=== PATIENT | male | born 1970 | race Asian ===

== ENCOUNTER 2018-10-09 21:59 | Inpatient (IN) | payer BC ==
--- NOTE | 2018-10-09 22:10 | PDOC ---
History of Present Illness - General Chief Complaint: Wound Stated Complaint: Headache Time Seen by Provider: 10/09/18 22:09 History Source: Patient Exam Limitations: No Limitations - History of Present Illness Initial Comments: 48 y/o male presenting to [facility] ER via private auto complaining of right periorbital swelling for the past two days. Swelling started spontaneously yesterday and noticeably worsened in the interim. He experienced an episode of right eye pain and blurry vision lasting a few hours earlier today. Vision has returned to normal. Endorses subjective fever and chills earlier today. points out redness to the medial aspect of the right eye. Additionally complaining of multiple skin lesions that appeared across his scalp last week. Denies history of similar lesions or swelling. Denies trauma to the area. No recent international travel; returned from [place] today in car. PCP: Dr. Bob Cristobal Medical Hx: - Diabetes - HTN - HLD Surgical Hx: - Pt denies past surgical history. Past History - Past Medical History Allergies/Adverse Reactions: Allergies Allergy/AdvReac Type Severity Reaction Status Date / Time No Known Allergies Allergy Verified 10/09/18 22:03 COPD: No Diabetes: Yes - Suicide/Smoking/Psychosocial Hx Smoking History: Never smoked Review of Systems - Review of Systems Able to Perform ROS?: Yes Comments:: In addition to that documented in the HPI above, the additional ROS was obtained : Constitutional: Endorses fevers or chills Eyes: Denies vision changes ENMT: Denies sore throat CV: Denies chest pain Resp: Denies SOB GI: Denies vomiting or diarrhea *Physical Exam - Vital Signs Last Vital Signs Temp Pulse Resp BP Pulse Ox 97.7 F 106 H 18 157/84 98 10/09/18 22:01 10/09/18 22:01 10/09/18 22:01 10/09/18 22:01 10/09/18 22:01 - Physical Exam Comments: Constitutional: Well-developed, well-nourished male in no acute distress or obvious discomfort. Found sitting upright in hospital chair. Alert and oriented x4. Answered all questions appropriately and completely. Speech was non-labored , non-pressured. Head/Eyes: Fullness and swelling around the superior aspect of the right orbit. No overlying skin changes. Medial aspect of right sclera is injected. No tenderness to palpation of temporal bone, frontal sinus, or maxillary sinus. No obvious external signs of trauma. PERRL. EOMI. Vision 20/25 bilaterally. Small isolated furuncles, one on left posterior occipital, left parietal, and right frontal regions; all tender to palpation. Eye Fluorescein Exam: Small amount of dye uptake overlying injected area - possible small area of excoriation. EARS: External auditory canals and tympanic membranes clear, hearing grossly intact. NOSE: No nasal discharge. THROAT: Oral cavity and pharynx normal. No inflammation, swelling, exudate, or lesions. Teeth and gingiva in good general condition. Neck: Supple, trachea is midline. Cardiovascular: Regular rate and regular rhythm. No murmur, rubs, clicks, or gallops. Peripheral pulses: Radial pulses full. Respiratory: Breathing unlabored. Equal chest rise and fall. Clear to auscultation bilaterally. No stridor, no wheezing, no rhonchi. Neuro: Alert and oriented. Moving all four extremities spontaneously. Gait normal. Observed walking unassisted through the department without assistance. Skin: Aside from findings noted above, skin is warm, dry, and intact. Psych: Affect: appropriate. Mood: normal. Medical Decision Making - Medical Decision Making *Reviewed vital signs, nursing notes, and prior visit documentation (if available). 48 y/o male complaining of right periorbital swelling with episode of eye pain and visual disturbance. Occuring in setting of recent appearance of scalp furuncles. H/o diabetes, believed to be well controlled. Afebrile. Triage vitals remarkable for mild tachycardia, not tachycardic on physical exam. D/D includes periorbital cellulitis, giant cell arteritis, zoster, reardon puffy tumor. Will obtain CBC, BMP, ESR, CRP, and CT of face and head. Ordered Vancomycin and Zosyn for broad spectrum coverage. 10/10/18 00:02 Pt signed out to resident Dr. Monroe after she was verbally appraised of the pt's HPI and ED course. Will follow up on pending labs and CT imaging. Likely admit for IV antibiotics. *DC/Admit/Observation/Transfer Diagnosis at time of Disposition: Orbital swelling - Discharge Dispostion Condition at time of disposition: Stable - Referrals Referrals: ON STAFF,NOT [Primary Care Provider] - - Patient Instructions - Post Discharge Activity
[2018-10-09] MEDS ORDERED: TETRACAINE 0.5% OPHTH SOLN 2 ML BOTTLE ONE ×2 (22:34→23:48)
[2018-10-09] MEDS ORDERED: FLUORESCEIN NA 1 EA STRIP ONE ×2 (22:34→23:48)
--- NOTE | 2018-10-09 22:57 | PDOC ---
Attending Attestation - Resident Resident Name: Valentin More - ED Attending Attestation I have performed the following: I have examined & evaluated the patient, The case was reviewed & discussed with the resident, I agree w/resident's findings & plan, Exceptions are as noted - HPI HPI: 10/09/18 22:52 48 yo DM htn hld here with c/o right facial periorbital swelling. pt noticed 2 days of swelling around right eye. has had small bumps/ furuncles on scalp for one week. no f/c but today didn't feel well. had nausea, eye pain, swelling. chills. felt his eyes were blurry earlier. no trauma to eye. now vision is at baseline. mild headache, more scalp pain and tenderness. eye redness. no contacts. no glassess. - Physicial Exam PE: 10/09/18 22:54 awake alert eyes right eye with conj injection. supraorbital, / forhead fullness , swelling. EOMI, no pain with extraocular movement. noted forehead swelling. scalp with multiple small furuncles. tm clear biltaerally. flourescin exam, no uptake. no fb. visual acuity 20/25 bilaterally. lungs clear bilaterally heart rrr no mrg abd soft nt nd. ext wwp. no edema. skin ( furuncles as described above). - Medical Decision Making 10/09/18 22:56 48 yo M h/o DM HTN HLD, her with furuncles, folliculitis, concerns for facial cellulitis periorbital vs. orbital cellulitis. plan iv anntiobiocs. labs cultures. ct head and orbits r/o orbital cellulitis.
[2018-10-09] MEDS ORDERED: PIPERACILLIN/TAZOB 3.375 GM 3.375 GM in DEXTROSE 5%-WATER - 50 ML IVPB ONE (22:58)
[2018-10-09] MEDS ORDERED: VANCOMYCIN 1,000 MG in DEXTROSE 5%-WATER - 250 ML IVPB ONE (22:58)
[2018-10-09] MEDS ORDERED: FLUORESCEIN NA 1 EA STRIP OS ONE (23:00)
[2018-10-09] MEDS ORDERED: TETRACAINE 0.5% HCL 0.6ML DROPPER.BOTTLE OS ONE (23:01)
[2018-10-09] MEDS ORDERED: PIPERACILLIN/TAZOB 3.375 GM 3.375 GM/50 ML BAG IVPB ONE (23:48)
[2018-10-09] MEDS ORDERED: VANCOMYCIN 1 GRAM (PRE-DOCKED) 1,000 MG/250 ML BAG IVPB ONE (23:48)
--- NOTE | 2018-10-10 00:13 | PDOC ---
*Physical Exam - Vital Signs Last Vital Signs Temp Pulse Resp BP Pulse Ox 97.7 F 106 H 18 157/84 98 10/09/18 22:01 10/09/18 22:01 10/09/18 22:01 10/09/18 22:01 10/09/18 22:01 ED Treatment Course - LABORATORY CBC & Chemistry Diagram: 10/10/18 00:26 10/10/18 00:26 Medical Decision Making - Medical Decision Making 10/10/18 00:11 Patient signed out to me by Dr. More. 48 y/o male complaining of right periorbital swelling x2 days, getting worse. No vision problems today. Isolated furuncles. -Labs drawn, started on vanco/zosyn and CT pending CT head showed skin swelling in L occiptal and parietal regions and R frontal corresponding to furuncles. CT face showed slight periorbital swelling around R orbit. No signs of septal cellulitis. Will be admitted for IV abx for cellulitis. Pt admitted to hospitalist *DC/Admit/Observation/Transfer Diagnosis at time of Disposition: Orbital swelling Periorbital cellulitis Qualifiers: Laterality: right Qualified Code(s): L03.213 - Periorbital cellulitis - Discharge Dispostion Condition at time of disposition: Stable - Referrals - Patient Instructions - Post Discharge Activity
[2018-10-10 00:40] LABS: BASO % 0.8 % (0-2.0); EOS % 2.7 % (0-4.5); HEMATOCRIT 39.8 % (35.4-49); LYMPH % 14.9 % (8-40); MCH 28.1 pg (25.7-33.7); MCHC 32.7 g/dl (32.0-35.9); MEAN CELL VOLUME 85.8 fl (80-96); MEAN PLT VOLUME 9.3 fl (7.5-11.1); MONO % 9.7 % (3.8-10.2); NEUT % 71.9 % (42.8-82.8); PLATELET COUNT 231 K/MM3 (134-434); RBC 4.64 M/mm3 (4.00-5.60); RDW 12.9 % (11.9-15.9); WHITE BLOOD COUNT 11.8 K/mm3 (4.0-10.0)
[2018-10-10 01:03] LABS: ANION GAP 6 MMOL/L (8-16); BLOOD UREA NITROGEN 17 mg/dL (7-18); CALCIUM 8.4 mg/dL (8.5-10.1); CHLORIDE 102 mmol/L (98-107); CO2 27 mmol/L (21-32); CREATININE 0.9 mg/dL (0.55-1.3); GLUCOSE,RANDOM 180 mg/dL (74-106); POTASSIUM 4.3 mmol/L (3.5-5.1); SODIUM 135 mmol/L (136-145)
[2018-10-10] MEDS ORDERED: TETRACAINE 0.5% OPHTH SOLN 2 ML BOTTLE ONE (01:11)
[2018-10-10 01:43] LABS: ERYTHROCYTE SEDIMENTATION RATE 38 mm/hr (0-20)
--- NOTE | 2018-10-10 02:09 | HP ---
CHIEF COMPLAINT: eye pain/swelling PCP: HISTORY OF PRESENT ILLNESS: 48 y/o male with PMH of DM, HTN, HLD who presented to the ED with complaints of eye pain/swelling since in addition to multiple painful furuncles scattered around patients scalp. Patient states that he first noticed the appearance of the furuncles about a week ago and a half ago and he states they are very painful and are very tender to palpation, he denies any use of new creams, shampoos etc. was when he began to notice the swelling above his eyes and the eye pain/changes in vision. He states that his right eye was burning and was having some blurred vision along with redness of the eye, though denies any tearing of the eye. He denies however any real pain when moving the eye in multiple directions. He states that this is the first time this has ever happened to him. Patient has also been having subjective fevers and chills at home for the past week, however, he has not taken his temperature. ER course was notable for: (1)WBC 11.8 (2) facial bones CT- positive for swelling in the right periorbital region (3)vanc and zosyn given Recent Travel: no recent international travel; just came back from [place] today PAST MEDICAL HISTORY: see above PAST SURGICAL HISTORY: none Social History: Smoking:denies Alcohol:social alcohol user (occasional drinks on the weekend) Drugs: none Family History: positive for DM and HTN on both sides Allergies No Known Allergies Allergy (Verified 10/09/18 22:03) HOME MEDICATIONS: Home Medications Medication Instructions Recorded Lisinopril [Prinivil] 10 mg PO DAILY 10/10/18 Naproxen Sodium [Aleve] 220 mg PO PRN PRN 10/10/18 Simvastatin [Zocor -] 20 mg PO HS 10/10/18 Sitagliptin Phos/Metformin HCl 1 each PO BID 10/10/18 [Janumet 50-500 mg Tablet] REVIEW OF SYSTEMS CONSTITUTIONAL: Present fever, chills: Absent:, diaphoresis, generalized weakness, malaise, loss of appetite, weight change HEENT: Present:eye pain, visual changes Absent: rhinorrhea, nasal congestion, throat pain, throat swelling, difficulty swallowing, mouth swelling, ear pain, CARDIOVASCULAR: Absent: chest pain, syncope, palpitations, irregular heart rate, lightheadedness , peripheral edema RESPIRATORY: Absent: cough, shortness of breath, dyspnea with exertion, orthopnea, wheezing, stridor, hemoptysis GASTROINTESTINAL: Absent: abdominal pain, abdominal distension, nausea, vomiting, diarrhea, constipation, melena, hematochezia GENITOURINARY: Absent: dysuria, frequency, urgency, hesitancy, hematuria, flank pain, genital pain MUSCULOSKELETAL: Absent: myalgia, arthralgia, joint swelling, back pain, neck pain SKIN: Present: bothersome lesions on scalp Absent: rash, itching, pallor HEMATOLOGIC/IMMUNOLOGIC: Absent: easy bleeding, easy bruising, lymphadenopathy, frequent infections ENDOCRINE: Absent: unexplained weight gain, unexplained weight loss, heat intolerance, cold intolerance NEUROLOGIC: Absent: headache, focal weakness or paresthesias, dizziness, unsteady gait, seizure, mental status changes, bladder or bowel incontinence PSYCHIATRIC: Absent: anxiety, depression, suicidal or homicidal ideation, hallucinations. PHYSICAL EXAMINATION Vital Signs - 24 hr 10/09/18 22:01 Temperature 97.7 F Pulse Rate 106 H Respiratory 18 Rate Blood Pressure 157/84 O2 Sat by Pulse 98 Oximetry (%) GENERAL: Awake, alert, and fully oriented, in no acute distress. HEAD: multiple furuncles: left occiptal and parietal region and right frontal region of scalp- tenderness upon palpation. EYES: R periorbital swelling and tenderness upon palpation, with conjunctival injection of both eyes (R>L) .. NECK:no JVD, no lymphadenopathy LUNGS: CTA B/L; no rales, rhonchi or wheezing ABDOMEN: Soft, nontender, not distended, normoactive bowel sounds, no guarding, no rebound, no masses. No hepatomegaly or splenomegaly. MUSCULOSKELETAL: Normal range of motion at all joints. No bony deformities or tenderness. No CVA tenderness. EXTREMITIES: warm, well-perfused, no clubbing/cyanosis or no edema B/L PSYCHIATRIC: Cooperative. Good eye contact. Appropriate mood and affect. SKIN: Warm, dry, normal turgor, no rashes or lesions noted, normal capillary refill. Laboratory Results - last 24 hr 10/10/18 10/10/18 10/10/18 00:26 00:26 00:26 WBC 11.8 H RBC 4.64 Hgb 13.0 Hct 39.8 MCV 85.8 MCH 28.1 MCHC 32.7 RDW 12.9 Plt Count 231 MPV 9.3 Absolute Neuts (auto) 8.4 H Neutrophils % 71.9 Lymphocytes % 14.9 Monocytes % 9.7 Eosinophils % 2.7 Basophils % 0.8 Nucleated RBC % 0 ESR 38 H Sodium 135 L Potassium 4.3 Chloride 102 Carbon Dioxide 27 Anion Gap 6 L BUN 17 Creatinine 0.9 Creat Clearance w eGFR > 60 Random Glucose 180 H Calcium 8.4 L C-Reactive Protein 2.7 H ASSESSMENT/PLAN: 48 y/o male with PMH of HTN, HLD, DM who presents with a two day history of right periorbital swelling, tenderness, in addition to multiple scalp lesions. #Periorbital Cellulitis patient is feeling better and having less pain on motion -c/w vanc and zosyn -blood cx pending -ID consulted # Scalp lesions possibly 2/2 patients uncontrolled DM -c/w vanc and zosyn -ID consulted -blood cx ordered #DM -holding oral meds -ISS ACHS -levemir 10units -BGMS ACHS -HbA1c ordered #HTN -lisinopril 20 mg DVT PPX: lovenox 40 F/E/N not on fluids replete electolytes diabetic diet Problem List - Problem (1) Orbital swelling Code(s): H05.229 - EDEMA OF UNSPECIFIED ORBIT Visit type - Emergency Visit Emergency Visit: Yes ED Registration Date: 10/10/18 Care time: The patient presented to the Emergency Department on the above date and was hospitalized for further evaluation of their emergent condition. - New Patient This patient is new to me today: Yes Date on this admission: 10/10/18 - Critical Care Critical Care patient: No
[2018-10-10] MEDS: ACETAMINOPHEN 325 MG TABLET (FP) PO PRN ×4 (03:09→23:04)
--- NOTE | 2018-10-10 04:53 | PN ---
Teaching Attending Note Name of Resident: Ivon Rhodes ATTENDING PHYSICIAN STATEMENT I saw and evaluated the patient. Chart, data, imaging reviewed. I reviewed the resident's note and discussed the case with the resident. I agree with the resident's findings and plan as documented. SUBJECTIVE: 48 yo man with uncontrolled DM who c/o right periorbital swelling for about 2 days and 3 tender bumps on his scalp for about the last week or so. Scalp lesions are erythematous with some dried purulent material. SOme blurry vision previously, now improved. Patient lives in [place], [place] and is in visiting here in [place]. Denied any swimming, animal contact, sick contacts, or recent travels aside from traveling to [place]. No fevers or chills. Last A1C was 10. OBJECTIVE: Last Vital Signs Temp Pulse Resp BP Pulse Ox 97.9 F 85 18 131/72 96 10/10/18 04:20 10/10/18 04:20 10/10/18 04:20 10/10/18 04:20 10/10/18 04:20 General -nad, aaox3 heent - 3 erythematous, pustular lesions about 1-2 cm in diameter on scalp, right periorbital swelling noted neck -supple cv- s1+S2+rrr chest clear abdomen -soft, nt, bs+ ext- no pedal edema Abnormal Lab Results 10/10/18 10/10/18 10/10/18 00:26 00:26 00:26 WBC 11.8 H Absolute Neuts (auto) 8.4 H ESR 38 H Sodium 135 L Anion Gap 6 L Random Glucose 180 H Calcium 8.4 L C-Reactive Protein 2.[address] and head CT reviewed ASSESSMENT AND PLAN: 48yo man with pustular soft tissue infections on scalp, possibly secondary to staph and right sided periorbital cellulitis. Probably precipitated by uncontrolled DM. -observation -IV vancomycin -IV ZOsyn -ID consult -blood cultures x2 -lactate -Nasal swab for MRSA PCR #Uncontrolled DM -tight insulin sliding scale -glargine insulin -a1c heparin sc for dvt ppx
[2018-10-10 04:54] VITALS: BMI 23.6
[2018-10-10] MEDS: INSULIN SLIDING SCALE (NOVOLOG) 1 VIAL SQ SCH ×4 (06:21→22:03)
[2018-10-10] MEDS: HEPARIN NA (PORCINE) 5,000 UNITS/ML 1ML VIAL SQ SCH ×3 (06:22→22:03)
[2018-10-10 07:37] LABS: BASO % 0.5 % (0-2.0); EOS % 3.9 % (0-4.5); HEMATOCRIT 37.7 % (35.4-49); HEMOGLOBIN 12.1 GM/dL (11.7-16.9); LYMPH % 17.8 % (8-40); MCH 27.4 pg (25.7-33.7); MEAN CELL VOLUME 85.7 fl (80-96); MEAN PLT VOLUME 9.5 fl (7.5-11.1); MONO % 10.1 % (3.8-10.2); NEUT % 67.7 % (42.8-82.8); PLATELET COUNT 213 K/MM3 (134-434); RDW 13.3 % (11.9-15.9); WHITE BLOOD COUNT 11.3 K/mm3 (4.0-10.0)
[2018-10-10 07:58] LABS: ALBUMIN 3.3 g/dl (3.4-5.0); ALK PHOS 59 U/L (45-117); ANION GAP 10 MMOL/L (8-16); BILIRUBIN,TOTAL 0.5 mg/dL (0.2-1); BLOOD UREA NITROGEN 15 mg/dL (7-18); CHLORIDE 102 mmol/L (98-107); CO2 26 mmol/L (21-32); CREATININE 0.9 mg/dL (0.55-1.3); GLUCOSE,RANDOM 197 mg/dL (74-106); MAGNESIUM 2.1 mg/dL (1.8-2.4); PHOSPHOROUS 2.6 mg/dL (2.5-4.9); POTASSIUM 4.1 mmol/L (3.5-5.1); SGOT/AST 10 U/L (15-37); SGPT/ALT 21 U/L (13-61); SODIUM 137 mmol/L (136-145); TOT PROT 6.7 g/dl (6.4-8.2)
[2018-10-10] MEDS: LISINOPRIL 10 MG TABLET (FP) PO SCH (09:47)
--- NOTE | 2018-10-10 10:00 | CON.ID ---
Consult Consult Specialty:: infectious disease Referred by:: hospitalist Reason for Consultation:: facial cellulitis - History of Present Illness Chief Complaint: painful scalp lesions and left forehead pain and eye pain History of Present Illness: 48 yo diabetic man with 2 day history of fever and chills. He reports left frontal headache and forehead and left eye swelling he notes painful scalp lesions for the last week and a half- never had before- come and go- notes 5 now last haircult 3 weeks ago no swimming never happened before no history MRSA seen in ED head ct and facial bone ct done results pending given vancomycin and zosyn in ED no antibiotics at home feels a bit better no visual changes reports vision normal no eye pain now - History Source History Provided By: Patient Limitations to Obtaining History: No Limitations - Past Medical History Cardio/Vascular: Yes: HTN, Hyperlipdemia Endocrine: Yes: Diabetes Mellitus - Past Surgical History Past Surgical History: Yes: None - Alcohol/Substance Use Hx Alcohol Use: (social) - Smoking History Smoking history: Never smoked - Social History Usual Living Arrangement: With Spouse ADL: Independent Occupation: jeweler Place of : Other ([employer]) History of Recent Travel: Yes (lives in [place], came to visit family in [place]) Home Medications - Allergies Allergies/Adverse Reactions: Allergies Allergy/AdvReac Type Severity Reaction Status Date / Time No Known Allergies Allergy Verified 10/09/18 22:03 - Home Medications Home Medications: Ambulatory Orders Lisinopril [Prinivil] 10 mg PO DAILY 10/10/18 Naproxen Sodium [Aleve] 220 mg PO PRN PRN 10/10/18 Simvastatin [Zocor -] 20 mg PO HS 10/10/18 Sitagliptin Phos/Metformin HCl [Janumet 50-500 mg Tablet] 1 each PO BID Family Disease History - Family Disease History Other Family History: DM, HTN, HLD Review of Systems - Review of Systems Constitutional: reports: Chills, Fever Eyes: reports: Eye Pain (resolved) HENT: reports: No Symptoms Neck: reports: No Symptoms Cardiovascular: reports: No Symptoms Respiratory: reports: No Symptoms. denies: Cough Gastrointestinal: denies: Abdominal Pain Genitourinary: reports: No Symptoms Physical Exam Vital Signs: Vital Signs Temperature 97.9 F 10/10/18 04:20 Pulse Rate 85 10/10/18 04:20 Respiratory Rate 18 10/10/18 04:20 Blood Pressure 131/72 10/10/18 04:20 O2 Sat by Pulse Oximetry (%) 96 10/10/18 04:20 Constitutional: Yes: Well Nourished, No Distress Eyes: Yes: Other (some injection of the right eye) HENT: Yes: Atraumatic, Normocephalic, Other (multiple furuncles on his scalp, swelling right forehead, EOMsI). No: Thrush, Tonsillar Exudate Neck: Yes: Supple Cardiovascular: Yes: Regular Rate and Rhythm Respiratory: Yes: Regular, CTA Bilaterally Gastrointestinal: Yes: Normal Bowel Sounds, Soft ...Rectal Exam: Yes: WNL Breast(s): Yes: WNL Musculoskeletal: Yes: WNL Extremities: Yes: WNL Edema: No Labs: CBC, BMP 10/10/18 06:10 10/10/18 06:10 Imaging - Results Cat Scan: Pending Problem List - Problems (1) Facial cellulitis Code(s): L03.211 - CELLULITIS OF FACE (2) Furuncle of scalp Code(s): L02.821 - FURUNCLE OF HEAD [ANY PART, EXCEPT FACE] (3) Diabetes Code(s): E11.9 - TYPE 2 DIABETES MELLITUS WITHOUT COMPLICATIONS Assessment/Plan awaiting imaging studies suspect scalp infection - ?staph with furncles as souce of cellulitis of the forehead continue vancomycin and zosyn f/u imaging f/u cultures mrsa screen of nares d/w hospitalist
--- NOTE | 2018-10-10 10:24 | PN ---
Progress Note (short form) - Note Progress Note: c/o pain and pruritis of the scalp. started several weeks ago first at the top of his head and then several other lesions have started. has not seen a doctor or been evaluated for this. Developed R facial swelling which prompted him to the Er. has subjective fevers and chills. no previous episodes. lives in [place] and here to visit family but no travel other places. no recent new creams, soaps or medications. last haircut was 3 weeks ago. no recent changes to medications. states his A1c last month was 10.5 and adjusted diet but no other changes. states his sugars have consistently been <150 for the past. denies CP, SOB, N/V/C/D, other rashes or lesions Current Medications Generic Name Dose Route Start Last Admin Trade Name Freq PRN Reason Stop Dose Admin Acetaminophen 650 mg 10/10/18 03:02 10/10/18 03:09 Tylenol - PO 650 mg Q6H PRN Administration PAIN Atorvastatin Calcium 10 mg 10/10/18 22:00 Lipitor - PO HS JENNI Heparin Sodium (Porcine) 5,000 unit 10/10/18 06:00 10/10/18 06:22 Heparin - SQ 5,000 unit TID JENNI Administration Vancomycin HCl 1,000 mg in 250 mls @ 166.667 mls/hr 10/10/18 10:15 Vancomycin (Pre-Docked) IVPB Q12H JENNI Protocol Piperacillin Sod/Tazobactam 100 mls @ 200 mls/hr 10/10/18 10:15 Sod 4.5 gm/ Dextrose IVPB Q8H-IV JENNI Protocol Insulin Aspart 1 vial 10/10/18 07:00 10/10/18 06:21 Novolog Vial Sliding Scale - SQ 4 units ACHS JENNI Administration Protocol Lisinopril 10 mg 10/10/18 10:00 10/10/18 09:47 Prinivil PO 10 mg DAILY JENNI Administration Last Vital Signs Temp Pulse Resp BP Pulse Ox 97.9 F 85 18 131/72 96 10/10/18 04:20 10/10/18 04:20 10/10/18 04:20 10/10/18 04:20 10/10/18 04:20 General NAD HEENT 4 centimeter lesions on the scalp which are swollen and excoriated with open blister with serous drainage all dispersed on the scalp. R forehead swelling. R eye slightly injected. EOMI, no photophobia, PERRL. sensation on the face intact. motor strength intact CV S1 S2 RRR no murmur/rub/gallop Lungs CTA B/L no wheezing/rales/rhonch Abdomen soft NT/ND Extremities no pedal edema CBCD WBC 11.3 K/mm3 (4.0-10.0) H 10/10/18 06:10 RBC 4.40 M/mm3 (4.00-5.60) 10/10/18 06:10 Hgb 12.1 GM/dL (11.7-16.9) 10/10/18 06:10 Hct 37.7 % (35.4-49) 10/10/18 06:10 MCV 85.7 fl (80-96) 10/10/18 06:10 MCHC 32.0 g/dl (32.0-35.9) 10/10/18 06:10 RDW 13.3 % (11.9-15.9) 10/10/18 06:10 Plt Count 213 K/MM3 (134-434) 10/10/18 06:10 MPV 9.5 fl (7.5-11.1) 10/10/18 06:10 CMP Sodium 137 mmol/L (136-145) 10/10/18 06:10 Potassium 4.1 mmol/L (3.5-5.1) 10/10/18 06:10 Chloride 102 mmol/L (98-107) 10/10/18 06:10 Carbon Dioxide 26 mmol/L (21-32) 10/10/18 06:10 Anion Gap 10 MMOL/L (8-16) 10/10/18 06:10 BUN 15 mg/dL (7-18) 10/10/18 06:10 Creatinine 0.9 mg/dL (0.55-1.3) 10/10/18 06:10 Creat Clearance w eGFR > 60 (>60) 10/10/18 06:10 Random Glucose 197 mg/dL (74-106) H 10/10/18 06:10 Calcium 8.0 mg/dL (8.5-10.1) L 10/10/18 06:10 Total Bilirubin 0.5 mg/dL (0.2-1) 10/10/18 06:10 AST 10 U/L (15-37) L 10/10/18 06:10 ALT 21 U/L (13-61) 10/10/18 06:10 Alkaline Phosphatase 59 U/L (45-117) 10/10/18 06:10 Total Protein 6.7 g/dl (6.4-8.2) 10/10/18 06:10 Albumin 3.3 g/dl (3.4-5.0) L 10/10/18 06:10 A/P 48yo M with PMH DM dyslipidemia and HTN presented to the ER wtih scalp lesions and forehead swelling 1. Mutliple scalp lesions- suspicious for furncles of the scalp, concern as may be tracking into the face with assoc forehead swelling. awaiting official CT results but low concern of orbital cellulitis due to lack of eye involvement. Started on Vanco/zosyn. BCx obtained however abx were already given. case d/w ID. pain control 2. DM- states he recently adjusted diet. A1c here pending. cont with ISS and BGM. 3. HTN- controlled. cont home medications 4. Dyslipidemia- statin 5. DVT ppx- hep sq Visit type - Emergency Visit Emergency Visit: Yes ED Registration Date: 10/10/18 Care time: The patient presented to the Emergency Department on the above date and was hospitalized for further evaluation of their emergent condition. - New Patient This patient is new to me today: Yes Date on this admission: 10/10/18 - Critical Care Critical Care patient: No - Discharge Referral Referred to [facility] No
[2018-10-10] MEDS ORDERED: DEXTROSE 5%-WATER 100 ML IVPB ONE ×3 (10:40→16:22)
[2018-10-10] MEDS ORDERED: PIPERACILLIN/TAZOBACTAM 4.5 GM VIAL IVPB ONE ×3 (10:40→16:22)
[2018-10-10] MEDS: PIPERACILLIN/TAZOB 4.5 GM 4.5 GM in DEXTROSE 5%-WATER 100 ML IVPB SCH ×2 (10:49→17:11)
[2018-10-10] MEDS: VANCOMYCIN 1 GRAM (PRE-DOCKED) 1,000 MG/250 ML BAG IVPB SCH ×2 (10:57→23:06)
[2018-10-10] MEDS ORDERED: INSULIN (NOVOLOG) ASPART 100 UNITS/ML 10ML VIAL ONE (16:14)
[2018-10-10] MEDS ORDERED: INSULIN (LEVEMIR) 100 UNITS/ML UNITS SQ SCH (22:00)
[2018-10-10] MEDS: ATORVASTATIN CA 10 MG TABLET (FP) PO SCH (22:03)
[2018-10-11] MEDS ORDERED: PIPERACILLIN/TAZOBACTAM 4.5 GM VIAL IVPB ONE ×3 (01:32→17:18)
[2018-10-11] MEDS ORDERED: DEXTROSE 5%-WATER 100 ML IVPB ONE ×3 (01:32→17:18)
[2018-10-11] MEDS: PIPERACILLIN/TAZOB 4.5 GM 4.5 GM in DEXTROSE 5%-WATER 100 ML IVPB SCH ×3 (02:34→17:27)
[2018-10-11] MEDS: INSULIN SLIDING SCALE (NOVOLOG) 1 VIAL SQ SCH ×4 (06:26→21:17)
[2018-10-11] MEDS: HEPARIN NA (PORCINE) 5,000 UNITS/ML 1ML VIAL SQ SCH ×3 (06:26→21:14)
--- NOTE | 2018-10-11 07:59 | PN ---
Physical Exam: SUBJECTIVE: Patient seen and examined at bedside. No overnight events. Complaining of headache. lesions show little improvement. Denies CP,HERNANDEZ, SOB, palpitations, abdominal pain , nausea or vomiting. OBJECTIVE: Vital Signs Period Temp Pulse Resp BP Sys/Wong Pulse Ox Last 24 Hr 98.0 F-99.6 F 79-84 -18 140-146/74-91 GENERAL: AAOx3, Mild distress. HEAD: multiple furuncles located throughout the scalp. areas are open with active serous drainage. areas are tender;swelling of bridge of nose. EYES: PERRL,EOMI, sclera anicteric, conjunctiva clear. No ptosis. ENT: moist mucous membranes. LUNGS: CTAB, no wheezes, no crackles, no accessory muscle use. HEART: RRR, S1, S2 without murmur, rub or gallop. ABDOMEN: Soft, nontender, nondistended, normoactive bowel sounds, no guarding, no rebound, no hepatosplenomegaly, no masses. EXTREMITIES: 2+ pulses, warm, well-perfused, no edema. NEUROLOGICAL: Cranial nerves II through XII grossly intact. Normal speech, gait not observed. PSYCH: Normal mood, normal affect. SKIN: Warm, dry, normal turgor, no rashes or lesions noted Laboratory Results - last 24 hr 10/10/18 10/10/18 10/10/18 06:10 07:23 11:16 POC Glucometer 175 Hemoglobin A1c % 8.8 H Lactic Acid 1.2 10/10/18 10/10/18 10/11/18 16:12 22:02 06:16 POC Glucometer 197 247 223 Hemoglobin A1c % Lactic Acid Active Medications Generic Name Dose Route Start Last Admin Trade Name Freq PRN Reason Stop Dose Admin Acetaminophen 650 mg 10/10/18 03:02 10/10/18 23:04 Tylenol - PO 650 mg Q6H PRN Administration PAIN Atorvastatin Calcium 10 mg 10/10/18 22:00 10/10/18 22:03 Lipitor - PO 10 mg HS JENNI Administration Heparin Sodium (Porcine) 5,000 unit 10/10/18 06:00 10/11/18 06:26 Heparin - SQ 5,000 unit TID JENNI Administration Vancomycin HCl 1,000 mg in 250 mls @ 166.667 mls/hr 10/10/18 10:15 10/10/18 23:06 Vancomycin (Pre-Docked) IVPB 166.667 mls/hr Q12H JENNI Administration Protocol Piperacillin Sod/Tazobactam 100 mls @ 200 mls/hr 10/10/18 10:15 10/11/18 02: 34 Sod 4.5 gm/ Dextrose IVPB 200 mls/hr Q8H-IV JENNI Administration Protocol Insulin Aspart 1 vial 10/10/18 07:00 10/11/18 06:26 Novolog Vial Sliding Scale - SQ 4 units ACHS JENNI Administration Protocol Lisinopril 10 mg 10/10/18 10:00 10/10/18 09:47 Prinivil PO 10 mg DAILY JENNI Administration ASSESSMENT/PLAN: 48yo M with PMH DM dyslipidemia and HTN presented to the ER wtih scalp lesions and forehead swelling Problem List - Problems (1) Furuncle of scalp Assessment/Plan: CT of head and facial bones negative for infection tracking into the face * high concern for Staph infection. * forehead swelling improved * plastics consulted to evaluate to see if need to be I&D. * vanco/zosyn day 2. ID on board * add motrin for pain control. * BCx no growth to date. (2) HTN (hypertension) Assessment/Plan: * Lisinopril (Prinivil) 10 mg PO DAILY (3) HLD (hyperlipidemia) Assessment/Plan: cotinue statin. (4) Diabetes Assessment/Plan: oral hyperglycemic meds held * ADA diet * BGM ACHS * ISS ACHS (5) DVT prophylaxis Assessment/Plan: heparin SQ Visit type - Emergency Visit Emergency Visit: Yes ED Registration Date: 10/10/18 Care time: The patient presented to the Emergency Department on the above date and was hospitalized for further evaluation of their emergent condition. - New Patient This patient is new to me today: Yes Date on this admission: 10/11/18 - Critical Care Critical Care patient: No - Discharge Referral Referred to [facility] Med P.C.: No
[2018-10-11 08:02] LABS: BASO % 0.5 % (0-2.0); EOS % 4.8 % (0-4.5); HEMATOCRIT 38.6 % (35.4-49); HEMOGLOBIN 12.3 GM/dL (11.7-16.9); LYMPH % 16.4 % (8-40); MCH 27.3 pg (25.7-33.7); MCHC 31.8 g/dl (32.0-35.9); MEAN CELL VOLUME 85.9 fl (80-96); MONO % 8.9 % (3.8-10.2); NEUT % 69.4 % (42.8-82.8); PLATELET COUNT 223 K/MM3 (134-434); RBC 4.49 M/mm3 (4.00-5.60); RDW 12.8 % (11.9-15.9); WHITE BLOOD COUNT 10.5 K/mm3 (4.0-10.0)
--- NOTE | 2018-10-11 09:13 | PN ---
Teaching Attending Note Name of Resident: Uday Rodriguez ATTENDING PHYSICIAN STATEMENT I saw and evaluated the patient. I reviewed the resident's note and discussed the case with the resident. I agree with the resident's findings and plan as documented. SUBJECTIVE: no improvement in head lesions. forehead swelling mildly improved. denies CP, SOB, fever, chills, N/V/C/D OBJECTIVE: Last Vital Signs Temp Pulse Resp BP Pulse Ox 98.5 F 84 18 140/91 96 10/11/18 06:00 10/11/18 06:00 10/11/18 06:00 10/11/18 06:00 10/10/18 04:20 General NAD HEENT R forehead swelling is decreased however remains above bridge of nose. area is not tender. multiple furuncles located throughout the scalp. areas are open with active serous drainage. areas are tender ASSESSMENT AND PLAN: 48yo M with PMH DM dyslipidemia and HTN presented to the ER wtih scalp lesions and forehead swelling 1. Mutliple scalp lesions- suspicious for furncles of the scalp, high concern for Staph infection. forehead swelling improved. will ask plastics to evaluate to see if need to be I&D. CT of head and facial bones negative for infection tracking into the face. on vanco/zosyn day 2. add motrin for pain control. ID on board. BCx NGTD 2. DM- a1c 8.8 (improved from last month of 10.5). cont iss and BGM. can d/c home on home regimen. 3. HTN- controlled. cont home medications 4. Dyslipidemia- statin 5. DVT ppx- hep sq
[2018-10-11] MEDS: LISINOPRIL 10 MG TABLET (FP) PO SCH (09:35)
[2018-10-11] MEDS: VANCOMYCIN 1 GRAM (PRE-DOCKED) 1,000 MG/250 ML BAG IVPB SCH ×2 (09:36→21:14)
[2018-10-11] MEDS: ACETAMINOPHEN 325 MG TABLET (FP) PO PRN (10:45)
[2018-10-11] MEDS ORDERED: IBUPROFEN 600 MG TABLET (FP) PO ONE (11:39)
--- NOTE | 2018-10-11 12:17 | PN ---
Progress Note (short form) - Note Progress Note: feels better reports scalp lesions are still quite painful no eye pain no visual complaints Vital Signs Period Temp Pulse Resp BP Sys/Wong Pulse Ox Last 24 Hr 98.0 F-99.6 F 79-90 18-18 136-146/74-91 98 HEENT- +right mid face swelling, less right forehead swelling, left neck swelling scalp lesions unchanged no thrush no pharyngitis cor-rrr lungs clear abd soft,nt ext no edema CBC, BMP 10/11/18 07:30 10/10/18 06:10 Microbiology 10/10/18 06:30 Blood - Arterial Blood Culture - Preliminary NO GROWTH OBTAINED AFTER 24 HOURS, INCUBATION TO CONTINUE FOR 4 DAYS. 10/10/18 06:10 Blood - Arterial Blood Culture - Preliminary NO GROWTH OBTAINED AFTER 24 HOURS, INCUBATION TO CONTINUE FOR 4 DAYS. Laboratory Tests 10/10/18 10/10/18 00:26 00:26 ESR 38 H C-Reactive Protein 2.7 H a/p facial cellulitis scalp lesions ?staph infection unfortunately blood cultures sent after antibiotics started f/u MRSA screen continue vancomycin and zosyn reports clinical improvement plastic surgery to see for scalp lesions- ?abscesses vancomycin trough in am d/w hospitalist Problem List - Problems (1) Facial cellulitis Code(s): L03.211 - CELLULITIS OF FACE (2) Furuncle of scalp Code(s): L02.821 - FURUNCLE OF HEAD [ANY PART, EXCEPT FACE] (3) Diabetes Code(s): E11.9 - TYPE 2 DIABETES MELLITUS WITHOUT COMPLICATIONS
[2018-10-11] MEDS: ATORVASTATIN CA 10 MG TABLET (FP) PO SCH (21:14)
[2018-10-11] MEDS ORDERED: INSULIN (NOVOLOG) ASPART 100 UNITS/ML 10ML VIAL ONE (21:16)
[2018-10-12] MEDS ORDERED: PIPERACILLIN/TAZOBACTAM 4.5 GM VIAL IVPB ONE ×4 (00:47→23:56)
[2018-10-12] MEDS: ACETAMINOPHEN 325 MG TABLET (FP) PO PRN (00:53)
[2018-10-12] MEDS: PIPERACILLIN/TAZOB 4.5 GM 4.5 GM in DEXTROSE 5%-WATER 100 ML IVPB SCH ×3 (01:12→17:09)
[2018-10-12] MEDS: HEPARIN NA (PORCINE) 5,000 UNITS/ML 1ML VIAL SQ SCH ×3 (05:35→21:13)
[2018-10-12] MEDS: INSULIN SLIDING SCALE (NOVOLOG) 1 VIAL SQ SCH ×4 (06:31→21:45)
[2018-10-12 07:53] LABS: BASO % 0.7 % (0-2.0); EOS % 7.7 % (0-4.5); HEMATOCRIT 37.5 % (35.4-49); HEMOGLOBIN 11.9 GM/dL (11.7-16.9); LYMPH % 27.3 % (8-40); MCH 27.4 pg (25.7-33.7); MCHC 31.6 g/dl (32.0-35.9); MEAN CELL VOLUME 86.5 fl (80-96); MONO % 10.2 % (3.8-10.2); NEUT % 54.1 % (42.8-82.8); PLATELET COUNT 249 K/MM3 (134-434); RBC 4.34 M/mm3 (4.00-5.60); RDW 12.7 % (11.9-15.9); WHITE BLOOD COUNT 8.2 K/mm3 (4.0-10.0)
[2018-10-12] MEDS ORDERED: IBUPROFEN 600 MG TABLET (FP) PO PRN (08:12)
[2018-10-12 08:42] LABS: ALK PHOS 56 U/L (45-117); ANION GAP 8 MMOL/L (8-16); BILIRUBIN,TOTAL 0.3 mg/dL (0.2-1); BLOOD UREA NITROGEN 16 mg/dL (7-18); CALCIUM 8.5 mg/dL (8.5-10.1); CHLORIDE 102 mmol/L (98-107); CO2 25 mmol/L (21-32); CREATININE 0.9 mg/dL (0.55-1.3); GLUCOSE,RANDOM 225 mg/dL (74-106); POTASSIUM 4.8 mmol/L (3.5-5.1); SGOT/AST 13 U/L (15-37); SGPT/ALT 20 U/L (13-61); SODIUM 135 mmol/L (136-145); TOT PROT 6.6 g/dl (6.4-8.2)
[2018-10-12] MEDS ORDERED: DEXTROSE 5%-WATER 100 ML IVPB ONE ×3 (09:20→23:57)
[2018-10-12] MEDS: LISINOPRIL 10 MG TABLET (FP) PO SCH (09:29)
[2018-10-12] MEDS: VANCOMYCIN 1 GRAM (PRE-DOCKED) 1,000 MG/250 ML BAG IVPB SCH (10:31)
--- NOTE | 2018-10-12 10:43 | PN ---
Progress Note (short form) - Note Progress Note: pain has resolved Vital Signs Period Temp Pulse Resp BP Sys/Wong Pulse Ox Last 24 Hr 98 F-98.9 F 71-85 18-20 140-160/78-95 97-97 heent-forehead swelling has resolved neck swelling has resolved scalp lesions persistent but less tender cor-rrr lungs clear abd soft,nt ext no edema CBC, BMP 10/12/18 06:30 10/12/18 06:30 Microbiology 10/11/18 10:45 Nares - Mrsa Screen - Right MRSA Screen - Final Mr S Aureus 10/11/18 10:45 Nares - Mrsa Screen - Left MRSA Screen - Final Mr S Aureus 10/10/18 06:30 Blood - Arterial Blood Culture - Preliminary NO GROWTH OBTAINED AFTER 48 HOURS, INCUBATION TO CONTINUE FOR 3 DAYS. 10/10/18 06:10 Blood - Arterial Blood Culture - Preliminary NO GROWTH OBTAINED AFTER 48 HOURS, INCUBATION TO CONTINUE FOR 3 DAYS. Laboratory Tests 10/10/18 10/10/18 00:26 00:26 ESR 38 H C-Reactive Protein 2.7 H a/p facial cellulitis-resolved scalp lesions-?furuncles ?staph infection unfortunately blood cultures sent after antibiotics started MRSA screen positive contact isolation to be seen by plastic surgery today if okay for discharge can switch to po clindamycin 300 QID for 7 days Problem List - Problems (1) Facial cellulitis Code(s): L03.211 - CELLULITIS OF FACE (2) Furuncle of scalp Code(s): L02.821 - FURUNCLE OF HEAD [ANY PART, EXCEPT FACE] (3) Diabetes Code(s): E11.9 - TYPE 2 DIABETES MELLITUS WITHOUT COMPLICATIONS Qualifiers: Diabetes mellitus type: type 2 Diabetes mellitus complication status: with unspecified complications
--- NOTE | 2018-10-12 12:30 | CONSULT ---
Consult Consult Specialty:: Plastic Surgery Reason for Consultation:: scalp lesions - History of Present Illness Chief Complaint: scalp lesions History of Present Illness: 48m diabetic with spontaneous scalp lesions x 3, prior draining - History Source History Provided By: Patient Limitations to Obtaining History: No Limitations - Past Medical History Cardio/Vascular: Yes: HTN, Hyperlipdemia Endocrine: Yes: Diabetes Mellitus - Past Surgical History Past Surgical History: Yes: None - Alcohol/Substance Use Hx Alcohol Use: (social) - Smoking History Smoking history: Never smoked - Social History Usual Living Arrangement: With Spouse ADL: Independent Occupation: jeweler History of Recent Travel: Yes (lives in [place], came to visit family in [place]) Home Medications - Allergies Allergies/Adverse Reactions: Allergies Allergy/AdvReac Type Severity Reaction Status Date / Time No Known Allergies Allergy Verified 10/09/18 22:03 - Home Medications Home Medications: Ambulatory Orders Lisinopril [Prinivil] 10 mg PO DAILY 10/10/18 Naproxen Sodium [Aleve] 220 mg PO PRN PRN 10/10/18 Simvastatin [Zocor -] 20 mg PO HS 10/10/18 Sitagliptin Phos/Metformin HCl [Janumet 50-500 mg Tablet] 1 each PO BID Family Disease History - Family Disease History Other Family History: DM, HTN, HLD Physical Exam Vital Signs: Vital Signs Temperature 98.1 F 10/12/18 09:28 Pulse Rate 85 10/12/18 09:28 Respiratory Rate 20 10/12/18 09:28 Blood Pressure 152/81 10/12/18 09:28 O2 Sat by Pulse Oximetry (%) 97 10/12/18 02:00 Labs: CBC, BMP 10/12/18 06:30 10/12/18 06:30 Assessment/Plan 48m diabetic with resolving cellulitis and scalp open boils, resolving with IV Vancomyin, still with some exudate from small anterior lesion, +MRSA from nares - No indication for I&D - Recommend warm soaks with soap and water BID - Antibx as per ID - Would not recommend I&D at this time especially in the face of diabetes - No need for plastic surgery follow up
--- NOTE | 2018-10-12 14:16 | PN ---
Physical Exam: SUBJECTIVE: Patient seen and examined OBJECTIVE: Vital Signs Period Temp Pulse Resp BP Sys/Wong Pulse Ox Last 24 Hr 98 F-98.9 F 71-85 18-20 140-160/78-95 97-97 GENERAL: The patient is awake, alert, and fully oriented, in no acute distress. HEAD: Normal with no signs of trauma. EYES: PERRL, extraocular movements intact, sclera anicteric, conjunctiva clear. No ptosis. ENT: Ears normal, nares patent, oropharynx clear without exudates, moist mucous membranes. NECK: Trachea midline, full range of motion, supple. LUNGS: Breath sounds equal, clear to auscultation bilaterally, no wheezes, no crackles, no accessory muscle use. HEART: Regular rate and rhythm, S1, S2 without murmur, rub or gallop. ABDOMEN: Soft, nontender, nondistended, normoactive bowel sounds, no guarding, no rebound, no hepatosplenomegaly, no masses. EXTREMITIES: 2+ pulses, warm, well-perfused, no edema. NEUROLOGICAL: Cranial nerves II through XII grossly intact. Normal speech, gait not observed. PSYCH: Normal mood, normal affect. SKIN: Warm, dry, normal turgor, no rashes or lesions noted Laboratory Results - last 24 hr 10/11/18 10/11/18 10/12/18 16:33 21:13 05:27 WBC RBC Hgb Hct MCV MCH MCHC RDW Plt Count MPV Absolute Neuts (auto) Neutrophils % Lymphocytes % Monocytes % Eosinophils % Basophils % Nucleated RBC % Sodium Potassium Chloride Carbon Dioxide Anion Gap BUN Creatinine Creat Clearance w eGFR POC Glucometer 212 346 214 Random Glucose Calcium Total Bilirubin AST ALT Alkaline Phosphatase Total Protein Albumin Vancomycin Pre-Dose 10/12/18 10/12/18 10/12/18 06:30 06:30 09:26 WBC 8.2 RBC 4.34 Hgb 11.9 Hct 37.5 MCV 86.5 MCH 27.4 MCHC 31.6 L RDW 12.7 Plt Count 249 MPV 9.0 Absolute Neuts (auto) 4.4 Neutrophils % 54.1 D Lymphocytes % 27.3 D Monocytes % 10.2 Eosinophils % 7.7 H Basophils % 0.7 Nucleated RBC % 0 Sodium 135 L Potassium 4.8 Chloride 102 Carbon Dioxide 25 Anion Gap 8 BUN 16 Creatinine 0.9 Creat Clearance w eGFR > 60 POC Glucometer Random Glucose 225 H Calcium 8.5 Total Bilirubin 0.3 AST 13 L ALT 20 Alkaline Phosphatase 56 Total Protein 6.6 Albumin 3.0 L Vancomycin Pre-Dose 8.9 L 10/12/18 12:06 WBC RBC Hgb Hct MCV MCH MCHC RDW Plt Count MPV Absolute Neuts (auto) Neutrophils % Lymphocytes % Monocytes % Eosinophils % Basophils % Nucleated RBC % Sodium Potassium Chloride Carbon Dioxide Anion Gap BUN Creatinine Creat Clearance w eGFR POC Glucometer 252 Random Glucose Calcium Total Bilirubin AST ALT Alkaline Phosphatase Total Protein Albumin Vancomycin Pre-Dose Active Medications Generic Name Dose Route Start Last Admin Trade Name Freq PRN Reason Stop Dose Admin Acetaminophen 650 mg 10/10/18 03:02 10/12/18 00:53 Tylenol - PO 650 mg Q6H PRN Administration PAIN Atorvastatin Calcium 10 mg 10/10/18 22:00 10/11/18 21:14 Lipitor - PO 10 mg HS JENNI Administration Heparin Sodium (Porcine) 5,000 unit 10/10/18 06:00 10/12/18 13:36 Heparin - SQ 5,000 unit TID JENNI Administration Piperacillin Sod/Tazobactam 100 mls @ 200 mls/hr 10/10/18 10:15 10/12/18 09: 29 Sod 4.5 gm/ Dextrose IVPB 200 mls/hr Q8H-IV JENNI Administration Protocol Vancomycin HCl 1,250 mg/ 250 mls @ 166.667 mls/hr 10/12/18 22:00 Dextrose IVPB Q12H JENNI Protocol Ibuprofen 600 mg 10/12/18 08:12 10/12/18 12:27 Motrin - PO 600 mg Q6H PRN Administration PAIN LEVEL 1-5 Insulin Aspart 1 vial 10/10/18 07:00 10/12/18 12:17 Novolog Vial Sliding Scale - SQ 6 units ACHS JENNI Administration Protocol Lisinopril 10 mg 10/10/18 10:00 10/12/18 09:29 Prinivil PO 10 mg DAILY JENNI Administration ASSESSMENT/PLAN: 48 y/o male with PMH of HTN, HLD, DM who presents with a two day history of right periorbital swelling, tenderness, in addition to multiple scalp lesions. #Periorbital Cellulitis patient is feeling better and having less pain on motion -c/w vanc and zosyn -blood cx negative # Scalp lesions possibly 2/2 patients uncontrolled DM -c/w vanc and zosyn -plastics saw patient: no need for I and D; monitor and apply warm soaks -MRSA FROM NARES POSITIVE #DM -holding oral meds -ISS ACHS -levemir 10units -BGMS ACHS -HbA1c 8.8; down from 10 #HTN -lisinopril 20 mg DVT PPX: lovenox 40 F/E/N not on fluids replete electolytes diabetic diet Problem List - Problems (1) Orbital swelling Code(s): H05.229 - EDEMA OF UNSPECIFIED ORBIT Visit type - Emergency Visit Emergency Visit: Yes ED Registration Date: 10/10/18 Care time: The patient presented to the Emergency Department on the above date and was hospitalized for further evaluation of their emergent condition. - New Patient This patient is new to me today: No - Critical Care Critical Care patient: No
--- NOTE | 2018-10-12 18:14 | PN ---
Teaching Attending Note Name of Resident: Ivon Rhodes ATTENDING PHYSICIAN STATEMENT I saw and evaluated the patient. I reviewed the resident's note and discussed the case with the resident. I agree with the resident's findings and plan as documented. SUBJECTIVE:states his swelling is now limited to supr-orbital. pain has improved at areas along the scalp and less drainage. denies CP, SOB, fever, chills, N/V/C/D OBJECTIVE: Last Vital Signs Temp Pulse Resp BP Pulse Ox 98.3 F 87 20 138/79 97 10/12/18 15:23 10/12/18 15:23 10/12/18 15:23 10/12/18 15:23 10/12/18 02:00 General NAD HEENT R supraorbital swelling. EOMI, PERRL in R eye. area is not tender multiple furuncles located throughout the scalp. swollen and tender. no active drainage. ASSESSMENT AND PLAN: 48yo M with PMH DM dyslipidemia and HTN presented to the ER wtih scalp lesions and forehead swelling 1. Mutliple scalp lesions- suspicious for furncles of the scalp, +MRSA in the nares. BCx negative however obtained after abx initiated. wound care per plastics (warm soaks with soap BID). no intervention at this time. on vanco/ zosyn day 3. check vanco trough today. will need to d/w ID about abx duration. might be difficulty during oil heaterman iv abx as patient [place] not [place]. will need to d/w ID. pain controlled. 2. DM- a1c 8.8 (improved from last month of 10.5). cont iss and BGM. can d/c home on home regimen. 3. HTN- controlled. cont home medications 4. Dyslipidemia- statin 5. DVT ppx- hep sq 6. spoke with present at bedside. all questions answered. verbalized understanding and agreement.
[2018-10-12] MEDS: VANCOMYCIN 1,250 MG in DEXTROSE 5%-WATER - 250 ML IVPB SCH (21:13)
[2018-10-12] MEDS: ATORVASTATIN CA 10 MG TABLET (FP) PO SCH (21:13)
[2018-10-12] MEDS ORDERED: diphenhydrAMINE HCL 25 MG CAPSULE (FP) PO ONE (22:15)
[2018-10-13] MEDS: PIPERACILLIN/TAZOB 4.5 GM 4.5 GM in DEXTROSE 5%-WATER 100 ML IVPB SCH ×2 (02:43→09:57)
[2018-10-13] MEDS: HEPARIN NA (PORCINE) 5,000 UNITS/ML 1ML VIAL SQ SCH ×2 (06:14→14:35)
[2018-10-13] MEDS: INSULIN SLIDING SCALE (NOVOLOG) 1 VIAL SQ SCH ×2 (06:14→11:15)
[2018-10-13 08:12] LABS: BASO % 0.6 % (0-2.0); EOS % 7.8 % (0-4.5); HEMATOCRIT 36.9 % (35.4-49); HEMOGLOBIN 11.8 GM/dL (11.7-16.9); LYMPH % 23.3 % (8-40); MCH 27.5 pg (25.7-33.7); MEAN CELL VOLUME 85.9 fl (80-96); MEAN PLT VOLUME 8.7 fl (7.5-11.1); MONO % 8.6 % (3.8-10.2); NEUT % 59.7 % (42.8-82.8); PLATELET COUNT 276 K/MM3 (134-434); RBC 4.29 M/mm3 (4.00-5.60); RDW 12.6 % (11.9-15.9); WHITE BLOOD COUNT 7.8 K/mm3 (4.0-10.0)
[2018-10-13 08:20] LABS: ANION GAP 10 MMOL/L (8-16); BLOOD UREA NITROGEN 14 mg/dL (7-18); CALCIUM 8.5 mg/dL (8.5-10.1); CHLORIDE 103 mmol/L (98-107); CO2 26 mmol/L (21-32); CREATININE 0.9 mg/dL (0.55-1.3); GLUCOSE,RANDOM 137 mg/dL (74-106); PHOSPHOROUS 3.4 mg/dL (2.5-4.9); POTASSIUM 4.3 mmol/L (3.5-5.1); SODIUM 138 mmol/L (136-145)
[2018-10-13] MEDS ORDERED: PIPERACILLIN/TAZOBACTAM 4.5 GM VIAL IVPB ONE (09:41)
[2018-10-13] MEDS ORDERED: DEXTROSE 5%-WATER 100 ML IVPB ONE (09:41)
[2018-10-13] MEDS: LISINOPRIL 10 MG TABLET (FP) PO SCH (09:58)
[2018-10-13] MEDS: VANCOMYCIN 1,250 MG in DEXTROSE 5%-WATER - 250 ML IVPB SCH (11:10)
--- NOTE | 2018-10-13 13:58 | PN ---
Teaching Attending Note Name of Resident: Ivon Rhodes ATTENDING PHYSICIAN STATEMENT I saw and evaluated the patient. I reviewed the resident's note and discussed the case with the resident. I agree with the resident's findings and plan as documented with exceptions below. SUBJECTIVE: Patient seen and examined. No face or eye swelling, no fevers, chills, Scalp lesions improving, no new pain or discharge noted. Overall feels well. OBJECTIVE: Vital Signs Period Temp Pulse Resp BP Sys/Wong Pulse Ox Last 24 Hr 97.7 F-98.3 F 82-87 12-20 138-178/79-92 98-98 Intake & Output 10/10/18 10/11/18 10/12/18 10/13/18 23:59 23:59 23:59 23:59 Intake Total 100 990 600 800 Balance 100 990 600 800 Weight 137 lb 6.4 oz General: sitting in bed in no acute distress HEENT: scalp furuncles with surrounding induration/swelling, non tender, minimal discharge, no facial or jennifer-orbital swelling Home Medications Medication Instructions Recorded Lisinopril [Prinivil] 10 mg PO DAILY 10/10/18 Naproxen Sodium [Aleve] 220 mg PO PRN PRN 10/10/18 Simvastatin [Zocor -] 20 mg PO HS 10/10/18 Sitagliptin Phos/Metformin HCl 1 each PO BID 10/10/18 [Janumet 50-500 mg Tablet] Clindamycin [Cleocin -] 300 mg PO Q6H 7 Days #28 capsule 10/13/18 Active Medications Acetaminophen (Tylenol -) 650 mg PO Q6H PRN PRN Reason: PAIN Last Admin: 10/12/18 00:53 Dose: 650 mg Atorvastatin Calcium (Lipitor -) 10 mg PO HS JENNI Last Admin: 10/12/18 21:13 Dose: 10 mg Heparin Sodium (Porcine) (Heparin -) 5,000 unit SQ TID JENNI Last Admin: 10/13/18 06:14 Dose: 5,000 unit Piperacillin Sod/Tazobactam (Sod 4.5 gm/ Dextrose) 100 mls @ 200 mls/hr IVPB Q8H-IV JENNI; Protocol Last Admin: 10/13/18 09:57 Dose: 200 mls/hr Vancomycin HCl 1,250 mg/ (Dextrose) 250 mls @ 166.667 mls/hr IVPB Q12H JENNI; Protocol Last Admin: 10/13/18 11:10 Dose: 166.667 mls/hr Ibuprofen (Motrin -) 600 mg PO Q6H PRN PRN Reason: PAIN LEVEL 1-5 Last Admin: 10/12/18 12:27 Dose: 600 mg Insulin Aspart (Novolog Vial Sliding Scale -) 1 vial SQ ACHS JENNI; Protocol Last Admin: 10/13/18 11:15 Dose: 6 units Lisinopril (Prinivil) 10 mg PO DAILY JENNI Last Admin: 10/13/18 09:58 Dose: 10 mg Laboratory Results - last 24 hr 10/12/18 10/12/18 10/13/18 16:28 21:25 06:09 WBC RBC Hgb Hct MCV MCH MCHC RDW Plt Count MPV Absolute Neuts (auto) Neutrophils % Lymphocytes % Monocytes % Eosinophils % Basophils % Nucleated RBC % Sodium Potassium Chloride Carbon Dioxide Anion Gap BUN Creatinine Creat Clearance w eGFR POC Glucometer 279 208 121 Random Glucose Calcium Phosphorus Magnesium 10/13/18 10/13/18 10/13/18 07:10 07:10 11:14 WBC 7.8 RBC 4.29 Hgb 11.8 Hct 36.9 MCV 85.9 MCH 27.5 MCHC 32.0 RDW 12.6 Plt Count 276 MPV 8.7 Absolute Neuts (auto) 4.7 Neutrophils % 59.7 Lymphocytes % 23.3 Monocytes % 8.6 Eosinophils % 7.8 H Basophils % 0.6 Nucleated RBC % 0 Sodium 138 Potassium 4.3 Chloride 103 Carbon Dioxide 26 Anion Gap 10 BUN 14 Creatinine 0.9 Creat Clearance w eGFR > 60 POC Glucometer 295 Random Glucose 137 H Calcium 8.5 Phosphorus 3.4 Magnesium 2.0 Microbiology 10/10/18 06:30 Blood - Arterial Blood Culture - Preliminary NO GROWTH OBTAINED AFTER 72 HOURS, INCUBATION TO CONTINUE FOR 2 DAYS. 10/10/18 06:10 Blood - Arterial Blood Culture - Preliminary NO GROWTH OBTAINED AFTER 72 HOURS, INCUBATION TO CONTINUE FOR 2 DAYS. 10/11/18 10:45 Nares - Mrsa Screen - Right MRSA Screen - Final S Aureus 10/11/18 10:45 Nares - Mrsa Screen - Left MRSA Screen - Final S Aureus ASSESSMENT AND PLAN: 48yo M with PMH DM dyslipidemia and HTN presented to the ER wtih scalp lesions and forehead swelling -Multiple scalp MRSA furuncles with facial/periorbita cellulitis -NIDDM -HTN -HLD Plan: Improved, afebrile normal wbc. Wound cx with MRSA. ID/plastic surgery input noted. Clindamycin 300mg QID x 7 days. WOund care/cleaning instructions and need for strict glucose control discussed in detail with patient, patient relays understanding and agrees to comply. REsume home DM regimen. D/c home today with outpatient PCP follow up in 1 week. Advised patient to return if worsening redness/swelling/discharge or pain, and stressed need for warm water compresses, washing with soap and water and avoid picking at the lesions.
[2018-10-13 14:27] VITALS: BP 140/77; PULSE 82; TEMP 98.3
--- NOTE | 2018-10-13 14:56 | DS ---
Physical Exam: SUBJECTIVE: Patient seen and examined OBJECTIVE: Vital Signs Period Temp Pulse Resp BP Sys/Wong Pulse Ox Last 24 Hr 97.7 F-98.3 F 82-87 12-20 138-178/77-92 98-98 PHYSICAL EXAM GENERAL: The patient is awake, alert, and fully oriented, in no acute distress. HEAD: Normal with no signs of trauma. EYES: PERRL, extraocular movements intact, sclera anicteric, conjunctiva clear. ENT: Ears normal, nares patent, oropharynx clear without exudates, moist mucous membranes. NECK: Trachea midline, full range of motion, supple. LUNGS: Breath sounds equal, clear to auscultation bilaterally, no wheezes, no crackles, no accessory muscle use. HEART: Regular rate and rhythm, S1, S2 without murmur, rub or gallop. ABDOMEN: Soft, nontender, nondistended, normoactive bowel sounds, no guarding, no rebound, no hepatosplenomegaly, no masses. EXTREMITIES: 2+ pulses, warm, well-perfused, no edema. NEUROLOGICAL: Cranial nerves II through XII grossly intact. Normal speech, gait not observed. PSYCH: Normal mood, normal affect. SKIN: Warm, dry, normal turgor, no rashes or lesions noted. LABS Laboratory Results - last 24 hr 10/12/18 10/12/18 10/13/18 16:28 21:25 06:09 WBC RBC Hgb Hct MCV MCH MCHC RDW Plt Count MPV Absolute Neuts (auto) Neutrophils % Lymphocytes % Monocytes % Eosinophils % Basophils % Nucleated RBC % Sodium Potassium Chloride Carbon Dioxide Anion Gap BUN Creatinine Creat Clearance w eGFR POC Glucometer 279 208 121 Random Glucose Calcium Phosphorus Magnesium 10/13/18 10/13/18 10/13/18 07:10 07:10 11:14 WBC 7.8 RBC 4.29 Hgb 11.8 Hct 36.9 MCV 85.9 MCH 27.5 MCHC 32.0 RDW 12.6 Plt Count 276 MPV 8.7 Absolute Neuts (auto) 4.7 Neutrophils % 59.7 Lymphocytes % 23.3 Monocytes % 8.6 Eosinophils % 7.8 H Basophils % 0.6 Nucleated RBC % 0 Sodium 138 Potassium 4.3 Chloride 103 Carbon Dioxide 26 Anion Gap 10 BUN 14 Creatinine 0.9 Creat Clearance w eGFR > 60 POC Glucometer 295 Random Glucose 137 H Calcium 8.5 Phosphorus 3.4 Magnesium 2.0 imaging: Facial Bones CT No acute fracture identified Maxillary sinusitis possibly acute on the left Head CT: CT Head without contrast There is no evidence of any intracerebral hemorrhage, mass lesion or midline shift. There is no evidence of an acute subdural hematoma. No CT evidence of acute infarct. No fractures are identified. Small contusion or hematoma right frontal scalp region Impression: No acute intracranial bleed or fracture.No CT evidence of acute infarct. Microbiology 10/10/18 06:30 Blood - Arterial Blood Culture - Preliminary NO GROWTH OBTAINED AFTER 72 HOURS, INCUBATION TO CONTINUE FOR 2 DAYS. 10/10/18 06:10 Blood - Arterial Blood Culture - Preliminary NO GROWTH OBTAINED AFTER 72 HOURS, INCUBATION TO CONTINUE FOR 2 DAYS. 10/11/18 10:45 Nares - Mrsa Screen - Right MRSA Screen - Final S Aureus 10/11/18 10:45 Nares - Mrsa Screen - Left MRSA Screen - Final S Aureus HOSPITAL COURSE: Date of Admission:10/12/18 48 y/o male with PMH of DM, HTN presented to the ED with complaints of fever, right periorbital swelling, and multiple furuncles on his scalp. CBC on admission was 11.8- he was started on Vanc and Zosyn and imaging of both his facial bones and his head were done- results shown above. Blood cultures were done which were negative and an MRSA swab of the nares was done which was positive. ID saw the patient who agreed with vanc and zosyn and they also wanted to get plastics involved to see if the furuncles could be I and D'd. Plastics saw the patient and did not think an I and D was necessary- just to wash with warm water and soap. Patient stopped spiking fevers and his WBC decreased- he was dishcarged home on a 7 day course of clindamycin 300 mg 4 times a day and with strict follow up. These were likely due to his uncontrolled diabetes as patients last HbA1C WAS 8.8 and he had a recent increase in his oral hypoglycemic meds, he was instructed to check his BGMS frequently and to follow up with his PCP./ Date of Discharge: 10/13/18 Minutes to complete discharge: 39 Discharge Summary Reason For Visit: ORBITAL SWELLING Current Active Problems DVT prophylaxis (Acute) Diabetes (Acute) Facial cellulitis (Acute) Furuncle of scalp (Acute) HLD (hyperlipidemia) (Acute) HTN (hypertension) (Acute) Orbital swelling (Acute) Periorbital cellulitis (Acute) Condition: Stable - Instructions Diet, Activity, Other Instructions: You were admitted to the hospital because of an infection on your scalp and face. Please resume all of your regular home medications in addition: -please take the antibiotic, Clindamycin 300mg 4 times a day for 7 days -please take the medication Bacid for your stomach. please monitor your blood sugars at home. -in regards to the lesions on your scalp, please wash them with soap and warm water twice a day and do not pick at them. Referrals: -we advise that you follow up with your primary care physician with one week. if you are not able to see your primary care physician, you can see Dr. Rhodes in the office: [phone] [phone] *if you begin to experience increased pain, changes in vision, chest pain, shortness of breath, fevers please return to the emergency room Referrals: Tommy Nava MD [Staff Physician] - Ivon Rhodes RES [Resident] - Marquita Esquivel MD [Staff Physician] - ON STAFF,NOT [Primary Care Provider] - Disposition: HOME - Home Medications Comprehensive Discharge Medication List: Ambulatory Orders Lisinopril [Prinivil] 10 mg PO DAILY 10/10/18 Naproxen Sodium [Aleve] 220 mg PO PRN PRN 10/10/18 Simvastatin [Zocor -] 20 mg PO HS 10/10/18 Sitagliptin Phos/Metformin HCl [Janumet 50-500 mg Tablet] 1 each PO BID Clindamycin [Cleocin -] 300 mg PO Q6H 7 Days #28 capsule 10/13/18 Lactobacillus Acidophilus [Bacid -] 1 each PO DAILY #30 capsule 10/13/18 Problem List - Problems (1) Orbital swelling Code(s): H05.229 - EDEMA OF UNSPECIFIED ORBIT This patient is new to me today: No Emergency Visit: Yes ED Registration Date: 10/12/18 Care time: The patient presented to the Emergency Department on the above date and was hospitalized for further evaluation of their emergent condition. Critical Care patient: No - Discharge Referral Referred to [facility] Med P.C.: No
== END 2018-10-13 16:02 | disposition home or self-care (01) | DRG 603 ==
LOC: JER 21:59 → JERBED 10-10 01:10 → UNDOADMOB 10-10 01:39 → JERBED 10-10 01:39 → J6S 10-10 04:12 → OBSVTOIN 10-12 16:08
PROVIDERS: ADMIT Internal Medicine; ATTEND Hospitalist
DX: L03.213 Periorbital cellulitis (principal); L02.821 Furuncle of head [any part, except face]; I10 Essential (primary) hypertension; E78.5 Hyperlipidemia, unspecified; E11.65 Type 2 diabetes mellitus with hyperglycemia; Z79.84 Long term (current) use of oral hypoglycemic drugs
CPT/HCPCS: 36415; 70450-TC; 70486-TC; 80048; 80053; 82962; 83036; 83605; 83735; 84100; 85025; 85651; 86140; 87040; 87081; 99284-25; G0378; G0480; J1644